=== PATIENT | male | born 1995 | race Two or more races ===

== ENCOUNTER 2017-05-07 08:25 | Emergency (ER) | payer SELFPAY ==
[~2017-05-07] VITALS: Ht 172.7 cm; Wt 81.6 kg
[2017-05-07 08:42] VITALS: BP 142/61
[2017-05-07] MEDS ORDERED: DICYCLOMINE HCL 10 MG CAPSULE PO ONE (09:00)
[2017-05-07] MEDS ORDERED: ONDANSETRON ODT 4 MG TAB.RAPDIS. PO ONE (09:00)
--- NOTE | 2017-05-07 09:03 | PHYS DOC ---
Past Medical History Past Medical History: No Pertinent History Past Surgical History: No Surgical History Alcohol Use: None Drug Use: Marijuana Adult General Chief Complaint Chief Complaint: NAUSEA/VOMITING/DIARRHA HPI HPI Patient is a 21 year old male with no significant medical history who presents today complaining of vomiting and diarrhea. Patient states last week he had an episode of vomiting after eating. He states the symptoms subsided in one day. He states yesterday he vomited twice after eating lunch and dinner. Patient states he also had slight diarrhea. Patient denies any hematemesis or melena. Denies any abdominal pain. He states several work-mates have similar symptoms. Review of Systems Review of Systems Constitutional: Denies fever or chills [] Eyes: Denies change in visual acuity, redness, or eye pain [] HENT: Denies nasal congestion or sore throat [] Respiratory: Denies cough or shortness of breath [] Cardiovascular: No additional information not addressed in HPI [] GI: Reports nausea vomiting and diarrhea, denies abdominal pain : Denies dysuria or hematuria [] Musculoskeletal: Denies back pain or joint pain [] Integument: Denies rash or skin lesions [] Neurologic: Denies headache, focal weakness or sensory changes [] All other systems were reviewed and found to be within normal limits, except as documented in this note. Current Medications Current Medications Current Medications Medications (Trade) Dose Ordered Sig/Rebekah Start Time Stop Time Status Last Admin Dose Admin Dicyclomine HCl (Bentyl) 20 mg 1X ONCE 05/07/17 09:00 05/07/17 09:01 DC 05/07/17 09:09 20 MG Ondansetron HCl (Zofran Odt) 4 mg 1X ONCE 05/07/17 09:00 05/07/17 09:01 DC 05/07/17 09:09 4 MG Allergies Allergies Allergies Coded Allergies Type Severity Reaction Last Updated Verified No Known Drug Allergies 05/07/17 No Physical Exam Physical Exam Constitutional: Well developed, well nourished, no acute distress, non-toxic appearance. [] HENT: Normocephalic, atraumatic, bilateral external ears normal, oropharynx moist, no oral exudates, nose normal. [] Eyes: PERRLA, EOMI, conjunctiva normal, no discharge. [] Neck: Normal range of motion, no tenderness, supple, no stridor. [] Cardiovascular:Heart rate regular rhythm, no murmur [] Lungs & Thorax: Bilateral breath sounds clear to auscultation [] Abdomen: Bowel sounds normal, soft, no tenderness, no masses, no pulsatile masses. [] Skin: Warm, dry, no erythema, no rash. [] Back: No tenderness, no CVA tenderness. [] Extremities: No tenderness, no cyanosis, no clubbing, ROM intact, no edema. [] Neurologic: Alert and oriented X 3, normal motor function, normal sensory function, no focal deficits noted. [] Psychologic: Affect normal, judgement normal, mood normal. [] Current Patient Data Vital Signs Vital Signs Date Time Temp Pulse Resp B/P (MAP) Pulse Ox O2 Delivery O2 Flow Rate FiO2 05/07/17 08:42 98.0 82 18 98 Room Air 98.0 EKG EKG [] Radiology/Procedures Radiology/Procedures [] Course & Med Decision Making Course & Med Decision Making Pertinent Labs and Imaging studies reviewed. (See chart for details) This is a well-appearing 21-year-old male patient presented to the ED today with nausea, vomiting and diarrhea. Patient is in no distress. Several of his work-mates have the same symptoms. He is refusing any workup. He is requesting something for nausea vomiting and be discharged. His symptoms are likely viral. Discharged with Compazine and dicyclomine. Instructed to push fluids and maintain good hand hygiene. Follow-up with his PCP in 1-2 weeks. Dragon Disclaimer Dragon Disclaimer This electronic medical record was generated, in whole or in part, using a voice recognition dictation system. Departure Departure Impression: Primary Impression: Nausea and vomiting Additional Impression: Diarrhea Disposition: 01 HOME, SELF-CARE Condition: STABLE Referrals: ADY NIXON MD follow up in one week Patient Instructions: Diarrhea, Nausea and Vomiting, [id number] Additional Instructions: You were seen with symptoms consistent of a viral illness including nausea vomiting and diarrhea. Push fluids. Maintain good hand hygiene. Take the prescribed medicines as needed for nausea medicine. Follow-up with your own doctor or the provided doctor in 1-2 weeks. Please return to the ED at any point symptoms worsen. Scripts Dicyclomine Hcl (DICYCLOMINE HCL) 20 Mg Tablet 1 TAB PO TID, #30 TAB 1 Refill Prov: [email or web address] APRN 05/07/17 Prochlorperazine Maleate (Compazine) 10 Mg Tablet 10 MG PO Q8HRS Y for NAUSEA, #20 TAB Prov: KAVIN FIELDS APRN 05/07/17 Problem Qualifiers Primary Impression: Nausea and vomiting Vomiting type: unspecified Vomiting Intractability: non-intractable Qualified Codes: R11.2 - Nausea with vomiting, unspecified Additional Impression: Diarrhea Diarrhea type: unspecified type Qualified Codes: R19.7 - Diarrhea, unspecified [email or web address] REGINO May 07, 2017 09:03
[2017-05-07] MEDS ORDERED: PROC10TA57 PO (09:21)
[2017-05-07] MEDS ORDERED: DICY20TA3 PO (09:21)
== END 2017-05-07 09:20 | disposition home or self-care (01) ==
LOC: ER 08:25
DX: R11.2 Nausea with vomiting, unspecified (principal); R19.7 Diarrhea, unspecified; F12.10 Cannabis abuse, uncomplicated
CPT/HCPCS: 99283; Q0162